=== PATIENT | male | born 1970 | race Caucasian/White ===

== ENCOUNTER 2020-12-02 20:38 | Emergency (ER) | payer MEDICAID ==
[~2020-12-02] VITALS: Ht 182.9 cm; Wt 160.0 kg
--- NOTE | 2020-12-02 22:51 | NUR ---
PT GOING TO XRAY
--- NOTE | 2020-12-02 23:06 | NUR ---
REPORT GIVEN TO VITO GOODWIN.
--- NOTE | 2020-12-02 23:10 | NUR ---
Note amandeep in EDM - 12/03/20 at 0157 by RODRIGUEZ PT JENNIFER JUNIOR FOR SUDDEN ONSET RIGHT SIDED PARALYSIS AT 1830. PT WAS HYPERTENSIVE ON ARRIVAL 220/124. PT DEVELOPED SOME SLURRED SPEECH AND RIGHT DROOP [employer]INTE[employer]CE [employer]ER.
--- NOTE | 2020-12-02 23:55 | NUR ---
ERP WAS IN FOR RECHECK. PT MEDICATED PER ORDERS.
[2020-12-02] MEDS ORDERED: OXYcodone/APAP 5/325MG TABLET ONE (23:56)
[2020-12-02 23:59] VITALS: BP 131/76
[2020-12-03] MEDS ORDERED: OXYcodone/APAP 5/325MG TABLET PO ONE
[2020-12-03] MEDS ORDERED: LAMO25TA5 PO (00:02)
[2020-12-03] MEDS ORDERED: VRAYLAR PO (00:03)
--- NOTE | 2020-12-03 00:11 | NUR ---
Note amandeep in EDM - 12/03/20 at 0014 by RODRIGUEZ D/C INSTRUCTIONS, MEDS & F/U APPT RV'WD WITH PT & SPOUSE, THEY VERBALIZE UNDERSTANDING. RX GIVEN X1, AND [facility]CO RX SENT TO [facility]. PT AMBULATED OUT OF ED WITH WITHOUT DIFFICULTY.
--- NOTE | 2020-12-03 00:20 | NUR ---
D/C INSTRUCTIONS, MEDS & F/U APPT RV'WD WITH PT, HE VERBALIZES UNDERSTANDING. RX GIVEN X2. RX SENT TO [facility]. ASSISTED PT OUT OF ED VIA WC WITH FRIEND.
== END 2020-12-03 00:12 | disposition home or self-care (01) ==
LOC: ED 21:08
DX: G89.11 Acute pain due to trauma (principal); M25.551 Pain in right hip; F17.200 Nicotine dependence, unspecified, uncomplicated; W18.30XA Fall on same level, unspecified, initial encounter; Y93.89 Activity, other specified; Y92.009 Unspecified place in unspecified non-institutional (private) residence as the place of occurrence of the external cause; Y99.8 Other external cause status
CPT/HCPCS: 72100; 99284